=== PATIENT | male | born 1955 | race Caucasian/White ===

== ENCOUNTER 2020-01-10 13:59 | Emergency (ER) | payer SELFPAY ==
[~2020-01-10] VITALS: Ht 182.9 cm; Wt 81.6 kg
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
--- NOTE | 2020-01-10 14:25 | NUR ---
AT BEDSIDE FOR EVAL.
--- NOTE | 2020-01-10 14:47 | NUR ---
[employer] WORK[employer] AT BEDSIDE FOR XRAY.
--- NOTE | 2020-01-10 15:36 | NUR ---
PT AWAKE ON BED AAOX4, NOT IN RESPIRATORY DISTRESS, V/S STABLE, KEPT RESTED AND COMFORTABLE. WILL CONTINUE TO MONITOR.
--- NOTE | 2020-01-10 18:10 | NUR ---
PT STATED HE WANTS TO BE DISCHARGED. AMBULATE WELL WITH A STEADY GAIT. AWARE.
--- NOTE | 2020-01-10 18:19 | NUR ---
Patient given written and verbal discharge instructions. Patient verbalizes understanding of instructions. Patient is ambulatory with steady gait. Refuses offer of residential placement. Patient given list of available shelters in surrounding area.
[2020-01-10 18:23] VITALS: BP 138/84
== END 2020-01-10 18:23 | disposition home or self-care (01) ==
LOC: ER 14:03
DX: M79.604 Pain in right leg (principal); F10.10 Alcohol abuse, uncomplicated; Y90.9 Presence of alcohol in blood, level not specified; Z59.0 Homelessness
CPT/HCPCS: 73590-TC

== ENCOUNTER 2020-01-16 17:05 | Observation (INO) | payer SELFPAY ==
[~2020-01-16] VITALS: Ht 182.9 cm; Wt 81.6 kg
[2020-01-16] MEDS: FOLIC ACID 1 MG TABLET PO SCH (06:42)
[2020-01-16] MEDS: THIAMINE HCL 100 MG TABLET PO SCH (06:42)
[2020-01-16] MEDS ORDERED: ACETAMINOPHEN 325 MG TABLET PO ONE (17:30)
--- NOTE | 2020-01-16 17:40 | NUR ---
[id number], C/O CHRONIC RIGHT LEG PAIN. PATIENT A/OX4, BREATHING EVEN AND UNLABORED, NO SOB NOTED, +ETOH SMELL. NEEDS ATTENDED, KEPT COMFORTABLE.
[2020-01-16 18:00] LABS: BASOPHILS % (AUTO) 0.6 % (0.0-2.0); EOSINOPHILS % (AUTO) 0.8 % (0.0-6.0); HEMATOCRIT 42 % (39-51); HEMOGLOBIN 13.5 g/dL (13.5-17.5); LYMPHOCYTES # (AUTO) 2.6 /CMM (0.8-4.8); LYMPHOCYTES % (AUTO) 41.6 % (20.0-44.0); MEAN CORPUSCULAR HGB CONC 32 g/dl (31.0-36.0); MEAN CORPUSCULAR VOLUME 93 fL (80-96); MONOCYTES # (AUTO) 0.5 /CMM (0.1-1.30); MONOCYTES % (AUTO) 8.7 % (2.0-12.0); NEUTROPHILS % (AUTO) 48.3 % (43.0-81.0); PLATELET COUNT (AUTO) 214 /CMM (150-450); WHITE BLOOD COUNT (AUTO) 6.2 K/uL (4.3-11.0)
[2020-01-16 18:06] LABS: CALCIUM, SERUM 8.4 mg/dL (8.5-10.1); CREATININE 0.9 mg/dL (0.6-1.3); POTASSIUM 4.6 mmol/L (3.5-5.1)
[2020-01-16] MEDS ORDERED: ACETAMINOPHEN 325 MG TABLET ONE (18:41)
--- NOTE | 2020-01-16 18:49 | NUR ---
PATIENT IN BED, RESTING, NO DISTRESS NOTED.
--- NOTE | 2020-01-16 22:32 | NUR ---
CALLED [facility], PAGED DR GRIFFITH
--- NOTE | 2020-01-16 22:37 | NUR ---
DR. JC SPEAKING WITH DR. GRIFFITH REGARDING ER ADMISSION
[2020-01-16] MEDS ORDERED: IV D5/0.45 NACL 1,000 ML IV PRN (22:47)
[2020-01-16] MEDS ORDERED: ACETAMINOPHEN 325 MG TABLET PO PRN (23:00)
[2020-01-16] MEDS ORDERED: ZOLPIDEM TARTRATE 5 MG TABLET PO PRN (23:00)
[2020-01-16] MEDS ORDERED: MAG HYDROX/AL HYDROX/SIMETH 30 ML UDC PO PRN (23:00)
[2020-01-16] MEDS ORDERED: ONDANSETRON HCL/PF 4 MG/2 ML VIAL IVP PRN (23:00)
[2020-01-16] MEDS ORDERED: MAGNESIUM HYDROXIDE 30 ML UDC PO PRN (23:00)
[2020-01-16] MEDS ORDERED: LORAZEPAM 1 MG TABLET PO PRN (23:00)
[2020-01-16] MEDS ORDERED: Z GUARD REMEDY 2 OZ OINT TP PRN (23:00)
[2020-01-16] MEDS ORDERED: HYDROCODONE/APAP 5/325MG TABLET PO PRN (23:00)
--- NOTE | 2020-01-17 00:19 | NUR ---
PT IN BED, PROVIDED WITH MORE BLANKETS.
--- NOTE | 2020-01-17 03:36 | NUR ---
PT RESTING COMFORTABLY IN BED. VITAL SIGNS STABLE. WILL CONTINUE TO MONITOR
[2020-01-17 05:36] LABS: BASOPHILS # (AUTO) 0.1 /CMM (0.0-0.2); BASOPHILS % (AUTO) 1.6 % (0.0-2.0); EOSINOPHILS % (AUTO) 1.3 % (0.0-6.0); HEMATOCRIT 41 % (39-51); HEMOGLOBIN 13.3 g/dL (13.5-17.5); LYMPHOCYTES # (AUTO) 2.2 /CMM (0.8-4.8); LYMPHOCYTES % (AUTO) 40.8 % (20.0-44.0); MEAN CORPUSCULAR HGB CONC 33 g/dl (31.0-36.0); MEAN CORPUSCULAR VOLUME 92 fL (80-96); MONOCYTES # (AUTO) 0.4 /CMM (0.1-1.30); NEUTROPHILS # (AUTO) 2.5 /CMM (1.8-8.9); NEUTROPHILS % (AUTO) 48.3 % (43.0-81.0); PLATELET COUNT (AUTO) 186 /CMM (150-450); WHITE BLOOD COUNT (AUTO) 5.3 K/uL (4.3-11.0)
--- NOTE | 2020-01-17 05:47 | NUR ---
PT REMAINS ASLEEP. VSS. NO ACUTE DISTRESS NTOED.
[2020-01-17 06:18] LABS: THYROID STIMULATING HORMONE 4.314 uIU/mL (0.358-3.74)
[2020-01-17 06:19] LABS: CALCIUM, SERUM 8.3 mg/dL (8.5-10.1); CREATININE 0.8 mg/dL (0.6-1.3); MAGNESIUM 2.3 mg/dL (1.8-2.4); PHOSPHORUS 3.7 mg/dL (2.5-4.9)
--- NOTE | 2020-01-17 06:38 | NUR ---
PT AAOX4. UNABLE TO AMBULATE. AWARE
[2020-01-17] MEDS ORDERED: FOLIC ACID 1 MG TABLET ONE ×2 (06:40→08:59)
[2020-01-17] MEDS ORDERED: THIAMINE HCL 100 MG TABLET ONE ×2 (06:40→09:00)
[2020-01-17] MEDS: PANTOPRAZOLE 40 MG TABLET.DR PO SCH ×2 (06:42→07:30)
--- NOTE | 2020-01-17 07:42 | NUR ---
PT ASLEEP ON BED EASILY AROUSABLE. NOT IN RESPIRATORY DISTRESS, V/S STABLE, KEPT RESTED AND COMFORTABLE. WILL CONTINUE TO MONITOR.
[2020-01-17] MEDS ORDERED: PANTOPRAZOLE 40 MG TABLET.DR PO ONE (08:59)
[2020-01-17] MEDS: THIAMINE HCL 100 MG TABLET PO SCH (09:03)
[2020-01-17] MEDS: FOLIC ACID 1 MG TABLET PO SCH (09:03)
[2020-01-17 09:21] VITALS: BP 128/77
--- NOTE | 2020-01-17 09:21 | NUR ---
Patient does not wish to proceed with medical care recommended by Dr. Galeana and . Patient given information related to possible complications, up to and including , which could occur as a result of leaving the hospital at this time. Patient verbalizes understanding of risks involved due to leaving against medical advice. Patient has signed AMA form.
== END 2020-01-17 09:21 | disposition left against medical advice (07) ==
LOC: ER 17:13 → OBSER 22:30
DX: F10.229 Alcohol dependence with intoxication, unspecified (principal); M79.604 Pain in right leg; G89.29 Other chronic pain; Y90.8 Blood alcohol level of 240 mg/100 ml or more; Z87.81 Personal history of (healed) traumatic fracture; Z59.0 Homelessness
CPT/HCPCS: 36415 ×2; 73590; 80048 ×2; 80061; 80307; 83036; 83735; 84100; 84443; 85025 ×2; G0378 ×11; J2405; J3490

== ENCOUNTER 2020-02-20 17:23 | Emergency (ER) | payer SELFPAY ==
[~2020-02-20] VITALS: Ht 182.9 cm; Wt 81.6 kg
[2020-02-20 17:25] VITALS: BP 120/71
[2020-02-20] MEDS ORDERED: ACETAMINOPHEN ES 500 MG TABLET ONE (17:40)
[2020-02-20] MEDS ORDERED: ACETAMINOPHEN 325 MG TABLET PO ONE (18:00)
--- NOTE | 2020-02-20 18:32 | NUR ---
Patient given written and verbal discharge instructions. Patient verbalizes understanding of instructions. Patient is ambulatory with steady gait. Refuses offer of longterm placement. Patient given list of available shelters in surrounding area.
== END 2020-02-20 18:33 | disposition home or self-care (01) ==
LOC: ER 17:24
DX: M79.604 Pain in right leg (principal); G89.29 Other chronic pain; B95.8 Unspecified staphylococcus as the cause of diseases classified elsewhere; Z59.0 Homelessness
CPT/HCPCS: 73590-TC

== ENCOUNTER 2020-04-21 19:10 | Emergency (ER) | payer SELFPAY ==
[~2020-04-21] VITALS: Ht 182.9 cm; Wt 81.6 kg
[2020-04-21 19:13] VITALS: BP 138/92
--- NOTE | 2020-04-21 19:13 | NUR ---
[facility] ASK TO BE BROUGHT TO ED BECAUSE HE IS NOT FEELING WELL, HE STATES HE HAS NOT HAVE ALCOHOL FOR 2 DAYS AND IS FEELING "SHAKY." PT DENIES ANY PAIN. VERBALLY RESPONSIVE. AAOX4. STABLE VITALS. AWAITING MD LOGAN.
--- NOTE | 2020-04-21 19:24 | NUR ---
ACCUCHECK 69.
--- NOTE | 2020-04-21 19:29 | NUR ---
DR ABEBE MADE AWARE OF BG. PT WAS PROVIDED W/ FOOD TRAY.
--- NOTE | 2020-04-21 22:36 | NUR ---
CALLED PT FOR BED ASSIGNMENT. PT YELLED "LEAVE ME ALONE, I'M TRYING TO GET SOME REST."
--- NOTE | 2020-04-22 05:16 | NUR ---
PT NOT IN WAITING ROOM FOR MD LOGAN.
== END 2020-04-22 05:16 | disposition left against medical advice (07) ==
LOC: ER 21:32
DX: F10.20 Alcohol dependence, uncomplicated (principal); R42 Dizziness and giddiness; M79.606 Pain in leg, unspecified; G89.29 Other chronic pain; Y90.9 Presence of alcohol in blood, level not specified; Z59.0 Homelessness; Z53.21 Procedure and treatment not carried out due to patient leaving prior to being seen by health care provider

== ENCOUNTER 2020-12-22 20:53 | Emergency (ER) | payer OTHER ==
[~2020-12-22] VITALS: Ht 182.9 cm; Wt 81.6 kg
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
[2020-12-22] MEDS ORDERED: ACETAMINOPHEN ES 500 MG TABLET ONE (21:29)
[2020-12-22] MEDS ORDERED: IBUPROFEN 600 MG TABLET ONE (21:29)
[2020-12-22] MEDS ORDERED: ACETAMINOPHEN ES 500 MG TABLET PO ONE (21:30)
[2020-12-22] MEDS ORDERED: IBUPROFEN 600 MG TABLET PO ONE (21:30)
--- NOTE | 2020-12-22 22:33 | NUR ---
Patient discharged to home in stable condition. Written and verbal after care instructions given. Patient verbalizes understanding of instruction.
[2020-12-23 01:14] VITALS: BP 120/75
== END 2020-12-22 22:33 | disposition home or self-care (01) ==
LOC: ER 20:55
DX: M25.511 Pain in right shoulder (principal); F10.10 Alcohol abuse, uncomplicated; Y90.9 Presence of alcohol in blood, level not specified; Z59.0 Homelessness

== ENCOUNTER 2020-12-24 17:10 | Emergency (ER) | payer OTHER ==
[~2020-12-24] VITALS: Ht 182.9 cm; Wt 90.7 kg
[2020-12-24 17:23] VITALS: BP 100/84
[2020-12-24] MEDS ORDERED: ACETAMINOPHEN 325 MG TABLET ONE (17:27)
[2020-12-24] MEDS ORDERED: ACETAMINOPHEN 325 MG TABLET PO ONE (17:30)
--- NOTE | 2020-12-24 18:42 | NUR ---
Patient discharged to home in stable condition. Written and verbal after care instructions given. Patient verbalizes understanding of instruction.
[2020-12-25] MEDS ORDERED: ACET-2605 PO (16:30)
== END 2020-12-24 18:42 | disposition home or self-care (01) ==
LOC: ER 17:13
DX: G89.29 Other chronic pain (principal); M79.604 Pain in right leg; Z59.0 Homelessness
CPT/HCPCS: 73590-TC

== ENCOUNTER 2020-12-24 21:15 | Emergency (ER) | payer OTHER ==
[~2020-12-24] VITALS: Ht 182.9 cm; Wt 90.7 kg
[2020-12-24 21:21] VITALS: BP 114/64
[2020-12-25] MEDS ORDERED: ACET-2605 PO (16:30)
== END 2020-12-25 00:11 | disposition home or self-care (01) ==
LOC: ER 21:16
DX: G89.29 Other chronic pain (principal); M79.661 Pain in right lower leg; Z59.0 Homelessness

== ENCOUNTER 2020-12-25 16:21 | Emergency (ER) | payer OTHER ==
[~2020-12-25] VITALS: Ht 182.9 cm; Wt 90.7 kg
[2020-12-25 16:21] VITALS: BP 96/57
[2020-12-25] MEDS ORDERED: ACET-2605 PO (16:30)
[2020-12-25] MEDS ORDERED: ACETAMINOPHEN 325 MG TABLET PO ONE (16:30)
[2020-12-25] MEDS ORDERED: ACETAMINOPHEN 325 MG TABLET ONE (16:33)
--- NOTE | 2020-12-25 16:36 | NUR ---
Patient discharged to home in stable condition. Written and verbal after care instructions given. Patient verbalizes understanding of instruction.
== END 2020-12-25 16:36 | disposition home or self-care (01) ==
LOC: ER 16:33
DX: G89.29 Other chronic pain (principal); M79.661 Pain in right lower leg; Z59.0 Homelessness; W50.0XXA Accidental hit or strike by another person, initial encounter; Y93.89 Activity, other specified; Y92.89 Other specified places as the place of occurrence of the external cause; Y99.8 Other external cause status

== ENCOUNTER 2022-07-20 18:55 | Emergency (ER) | payer MEDICAID, OTHER ==
[~2022-07-20] VITALS: Ht 182.9 cm; Wt 97.5 kg
[~2022-07-20 18:55] MED LIST: ACET-2605 PO
[2022-07-20 19:28] VITALS: BP 143/78
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
--- NOTE | 2022-07-20 20:00 | NUR ---
SEEN AND EXAMINED BY
[2022-07-20] MEDS ORDERED: HYDROCODONE/APAP 5/325MG TABLET ONE (20:26)
[2022-07-20] MEDS ORDERED: HYDROCODONE/APAP 5/325MG TABLET PO ONE (20:30)
[2022-07-20] MEDS ORDERED: ACET-868 PO (20:46)
--- NOTE | 2022-07-20 20:59 | NUR ---
Patient discharged to home in stable condition. Written and verbal after care instructions given. Patient verbalizes understanding of instruction.
== END 2022-07-20 20:59 | disposition home or self-care (01) ==
LOC: ER 19:00
DX: G89.29 Other chronic pain (principal); M79.661 Pain in right lower leg; Z59.00 Homelessness unspecified; Z79.1 Long term (current) use of non-steroidal anti-inflammatories (NSAID)